=== PATIENT | female | born 1975 | race Caucasian/White ===

== ENCOUNTER 2018-01-01 18:32 | Emergency (ER) | payer OTHER ==
[2018-01-01] MEDS ORDERED: Sodium Chloride 0.9% 1,000 ML IV ONE (19:29)
--- NOTE | 2018-01-01 19:29 | C.PDOC ---
History Of Present Illness 42 year old female presents to the emergency department with complaints of palpitations. Patient reports a history of anxiety, but denies fever, chills, chest pain, nausea, and vomiting. Patient states that she feels her heart rate is fast, but regular. Time Seen by Provider: 01/01/18 19:27 Chief Complaint (Nursing): Palpitations History Per: Patient History/Exam Limitations: no limitations Onset/Duration Of Symptoms: Hrs Current Symptoms Are (Timing): Still Present Associated Symptoms: Other (palpitations) Quality Of Symptoms: Rapid Heart Rate, No Rhythm Irregularity Past Medical History Reviewed: Historical Data, Nursing Documentation, Vital Signs Vital Signs: Last Vital Signs Temp 98.2 F 01/01/18 18:51 Pulse 108 H 01/01/18 19:30 Resp 20 01/01/18 18:51 BP 168/98 H 01/01/18 18:51 Pulse Ox 99 01/01/18 19:48 - Medical History PMH: Anxiety, Sleep Apnea Surgical History: No Surg Hx Family History: States: Unknown Family Hx - Social History Hx Tobacco Use: Yes Hx Alcohol Use: No Hx Substance Use: No - Immunization History Hx Tetanus Toxoid Vaccination: No Hx Influenza Vaccination: No Hx Pneumococcal Vaccination: No Review Of Systems Constitutional: Negative for: Fever, Chills Cardiovascular: Positive for: Palpitations. Negative for: Chest Pain Gastrointestinal: Negative for: Nausea, Vomiting Physical Exam - Physical Exam Appears: Non-toxic, No Acute Distress, Other (morbidly obese) Skin: Warm, Dry Head: Normacephalic Eye(s): bilateral: Normal Inspection Oral Mucosa: Moist Neck: Trachea Midline, Supple Chest: Symmetrical, No Tenderness Cardiovascular: Rhythm Regular, No Murmur Respiratory: No Rales, No Rhonchi, No Wheezing Gastrointestinal/Abdominal: Soft, No Tenderness, No Guarding, No Rebound, Other (obese) Neurological/Psych: Oriented x3 ED Course And Treatment - Laboratory Results Result Diagrams: 01/01/18 19:40 01/01/18 19:40 ECG: Interpreted By Me, Viewed By Me ECG Rhythm: Sinus Tachycardia (127), Nonspecific Changes O2 Sat by Pulse Oximetry: 99 (RA) Pulse Ox Interpretation: Normal Progress Note: Plan: EKG. CMP. TSH. CBC. PTT. Prothrombin Time. NaCl IV Fluids. HCG Qualitative Urine. Urinalysis Reevaluation Time: 21:33 Reassessment Condition: Improved Medical Decision Making Medical Decision Making: Upon provider reevaluation patient is feeling better, is medically stable, and requires no further treatment in the ED at this time. Patient will be discharged home with Rx for . Counseling was provided and all questions were answered regarding diagnosis and need for follow up with the referred clinic. There is agreement to discharge plan. Return if symptoms persist or worsen. Disposition Counseled Patient/Family Regarding: Studies Performed, Diagnosis, Need For Followup - Disposition Referrals: Bib Salinas MD [Staff Provider] - Disposition: HOME/ ROUTINE Disposition Time: 19:29 Condition: FAIR Additional Instructions: Please return if symptoms recur. May also need an event monitor Instructions: Palpitations (DC), Anxiety, Adult (DC) Forms: [employer] (Malay) - Clinical Impression Clinical Impression: Palpitations, Anxiety - Scribe Statement The provider has reviewed the documentation as recorded by the Scribe (Kaveh Post) Provider Attestation: All medical record entries made by the Scribe were at my direction and personally dictated by me. I have reviewed the chart and agree that the record accurately reflects my personal performance of the history, physical exam, medical decision making, and the department course for this patient. I have also personally directed, reviewed, and agree with the discharge instructions and disposition.
[2018-01-01 19:43] LABS: BASO % 0.3 % (0.0-2.0); EOS # 0.1 K/uL (0.0-0.7); EOS % 0.6 % (0.0-4.0); HEMOGLOBIN 13.5 g/dL (11.0-16.0); LYMPH # 3.2 K/uL (1.0-4.3); LYMPH % 26.5 % (20.0-40.0); MEAN CELL VOLUME 79.6 fL (81.0-99.0); MEAN CORPUSCULAR HEMOGLOBIN 26.3 pg (27.0-31.0); MEAN PLATELET VOLUME 8.3 fL (7.2-11.7); MONO # 0.6 K/uL (0.0-0.8); MONO % 4.8 % (0.0-10.0); NEUT # 8.1 K/uL (1.8-7.0); NEUT % 67.8 % (50.0-75.0); NRBC % 0.1 % (0.0-2.0); RBC 5.15 Mil/uL (3.80-5.20); RED CELL DISTRIBUTION WIDTH 14.6 % (11.5-14.5)
[2018-01-01 19:50] LABS: INR 1.1; PROTHROMBIN TIME 12.3 SECONDS (9.7-12.2)
[2018-01-01 19:56] LABS: ALB/GLOB RATIO 1.2 (1.0-2.1); ALBUMIN 4.5 g/dL (3.5-5.0); ALT/SGPT 25 U/L (9-52); AST/SGOT 20 U/L (14-36); BLOOD UREA NITROGEN 7 mg/dL (7-17); CALCIUM 9.3 mg/dl (8.6-10.4); GFR NON-AFRICAN AMERICAN > 60
[2018-01-01 20:34] LABS: SQUAMOUS EPITHIAL < 1 /hpf (0-5); URINE BACTERIA RARE (<OCC); URINE BILIRUBIN NEGATIVE (NEGATIVE); URINE BLOOD 1+ (NEGATIVE); URINE CLARITY Clear (Clear); URINE COLOR Yellow (YELLOW); URINE GLUCOSE (UA) NORMAL (Normal); URINE LEUKOCYTE ESTERASE NEG Leu/uL (Negative); URINE PROTEIN NEGATIVE (NEGATIVE); URINE UROBILINOGEN NORMAL mg/dL (0.2-1.0)
[2018-01-01 21:51] VITALS: BP 122/77; PULSE 85; RESP 18; TEMP 98.1; O2SAT 98
== END 2018-01-01 21:52 | disposition home or self-care (01) ==
LOC: C.ER 18:32
DX: F41.9 Anxiety disorder, unspecified (principal); R00.2 Palpitations; Z72.0 Tobacco use